=== PATIENT | female | born 1980 | race Caucasian/White ===

== ENCOUNTER 2019-07-04 12:06 | Emergency (ER) | payer OTHER ==
[~2019-07-04] VITALS: Ht 165.1 cm; Wt 65.8 kg
[2019-07-04 12:07] VITALS: BP 104/50
[2019-07-04] MEDS ORDERED: AUGMENTIN 875-1 EACH PO (12:09)
== END 2019-07-04 12:20 | disposition home or self-care (01) ==
LOC: ER 12:06
DX: S91.051A Open bite, right ankle, initial encounter (principal); S61.252A Open bite of right middle finger without damage to nail, initial encounter; S61.254A Open bite of right ring finger without damage to nail, initial encounter; W55.01XA Bitten by cat, initial encounter; Y93.89 Activity, other specified; Y92.89 Other specified places as the place of occurrence of the external cause; Y99.8 Other external cause status